=== PATIENT | female | born 1950 | race Caucasian/White ===

== ENCOUNTER 2021-09-22 12:07 | Inpatient (IN) | payer MEDICARE, OTHER ==
[~2021-09-22] VITALS: Ht 165.1 cm; Wt 63.0 kg
[2021-09-22] VITALS (7 sets, daily range): BP systolic 100–125; BP diastolic 52–86
[2021-09-22 15:24] LABS: HEMATOCRIT 38.5 % (37.0-47.0); HEMOGLOBIN 12.4 g/dl (12.0-16.0); IMMATURE GRANULOCYTES 0.2 % (0.0-5.0); MEAN CELL VOLUME 99.5 fL CALC (80.0-100.0); MEAN CORPUSCULAR HGB CONC 32.2 g/dL CAL (32.0-36.0); NEUT# 8.98 thou/uL (2.00-7.15); RED BLOOD COUNT 3.87 mill/uL (4.20-5.60); RED CELL DISTRI WIDTH 16.2 % (11.5-15.5)
[2021-09-22 15:42] LABS: ALBUMIN 3.7 g/dL (3.2-5.0); ALKALINE PHOSPHATASE 103 u/l (38-126); BILIRUBIN, TOTAL 0.5 mg/dL (0.0-1.4); BUN 37 mg/dL (8-23); BUN/CREATININE RATIO 55 (12-20 (CALC)); CARBON DIOXIDE 33 mmol/l (22-30); CHLORIDE 97 mmol/l (95-108); CREATININE 0.7 mg/dL (0.5-1.0); GFR > 60 ML/MIN (>=60 (CALC)); GFR FOR AFR.AMER. > 60 ML/MIN (>=60 (CALC)); SGOT/AST 31 u/l (9-36); SODIUM 135 mmol/l (137-146); TOTAL PROTEIN 6.8 g/dL (6.3-8.2)
[2021-09-22 15:46] LABS: ANION GAP 9 (6-22 (CALC)); POTASSIUM 3.7 mmol/l (3.5-5.1)
[2021-09-22] MEDS ORDERED: LASIX 40 MG TAB40 MG PO (17:14)
[2021-09-22] MEDS ORDERED: FENTANYL50 MCG/HR TOP (17:15)
[2021-09-22] MEDS ORDERED: KLOR-CON M1010 MEQ PO (17:16)
[2021-09-22] MEDS ORDERED: GABAPENTIN100 MG PO (17:17)
[2021-09-22] MEDS ORDERED: ACYCLOVIR400 MG PO (17:18)
[2021-09-22] MEDS ORDERED: SERTRALINE50 MG PO (17:19)
[2021-09-22] MEDS ORDERED: DEXAMETHASON0.5 MG PO (17:19)
[2021-09-22] MEDS ORDERED: TEMAZEPAM30 MG PO (17:20)
[2021-09-22] MEDS ORDERED: SENNA PLUS 50-81 CAP PO (17:21)
[2021-09-22] MEDS ORDERED: MORPHINE SUL30 M3 PO (17:23)
[2021-09-22] MEDS ORDERED: ELAVIL25 M1 PO (17:30)
[2021-09-22] MEDS ORDERED: MIRALAX17 GM PO (17:31)
[2021-09-23 04:43] VITALS: BP 97/43
[2021-09-23 05:00] VITALS: BP 102/68
[2021-09-23 05:34] LABS: HEMOGLOBIN 11.5 g/dl (12.0-16.0); MEAN CELL VOLUME 99.7 fL CALC (80.0-100.0); MEAN CORPUSCULAR HGB 31.9 pG CALC (26.0-32.0); MEAN CORPUSCULAR HGB CONC 31.9 g/dL CAL (32.0-36.0); RED BLOOD COUNT 3.61 mill/uL (4.20-5.60); RED CELL DISTRI WIDTH 16.4 % (11.5-15.5)
[2021-09-23 05:54] LABS: ANION GAP 8 (6-22 (CALC)); BUN 34 mg/dL (8-23); BUN/CREATININE RATIO 38 (12-20 (CALC)); CARBON DIOXIDE 30 mmol/l (22-30); CHLORIDE 102 mmol/l (95-108); CREATININE 0.9 mg/dL (0.5-1.0); GFR > 60 ML/MIN (>=60 (CALC)); GFR FOR AFR.AMER. > 60 ML/MIN (>=60 (CALC)); MAGNESIUM 2.2 mg/dL (1.6-2.3); POTASSIUM 3.6 mmol/l (3.5-5.1); SODIUM 136 mmol/l (137-146)
[2021-09-23 08:05] VITALS: BP 94/45
[2021-09-23] MEDS ORDERED: SANTYL250 UNIT/G TOP (12:27)
[2021-09-23] MEDS ORDERED: ATIVAN0.5 MG PO (12:30)
[2021-09-23] MEDS ORDERED: MELATONIN5 M3 PO (12:33)
[2021-09-23] MEDS ORDERED: MORPHINE SUL15 M2 PO (12:40)
[2021-09-23] MEDS ORDERED: MS CONTIN15 M1 PO (12:44)
[2021-09-23] MEDS ORDERED: BISACODYL5 MG PO (12:49)
[2021-09-23] MEDS ORDERED: GUAIFENESIN400 MG PO (13:13)
[2021-09-23] MEDS ORDERED: ACETAMINOPHEN500 MG PO (13:19)
[2021-09-23] MEDS ORDERED: TRAZODONE50 MG PO (13:42)
[2021-09-23 16:09] VITALS: BP 98/43
[2021-09-23 19:00] VITALS: BP 95/43
[2021-09-23 19:10] VITALS: BP 100/54
[2021-09-24 04:46] VITALS: BP 96/45
[2021-09-24 05:14] LABS: HEMATOCRIT 35.7 % (37.0-47.0); HEMOGLOBIN 11.4 g/dl (12.0-16.0); MEAN CELL VOLUME 100.3 fL CALC (80.0-100.0); MEAN CORPUSCULAR HGB CONC 31.9 g/dL CAL (32.0-36.0); RED BLOOD COUNT 3.56 mill/uL (4.20-5.60); RED CELL DISTRI WIDTH 16.1 % (11.5-15.5)
[2021-09-24 05:38] LABS: ANION GAP 9 (6-22 (CALC)); BUN 40 mg/dL (8-23); BUN/CREATININE RATIO 48 (12-20 (CALC)); CARBON DIOXIDE 31 mmol/l (22-30); CHLORIDE 100 mmol/l (95-108); CREATININE 0.8 mg/dL (0.5-1.0); GFR > 60 ML/MIN (>=60 (CALC)); GFR FOR AFR.AMER. > 60 ML/MIN (>=60 (CALC)); MAGNESIUM 2.2 mg/dL (1.6-2.3); POTASSIUM 3.7 mmol/l (3.5-5.1); SODIUM 136 mmol/l (137-146)
[2021-09-24 14:12] VITALS: BP 105/54
[2021-09-24 14:45] VITALS: BP 105/54
[2021-09-25 05:50] LABS: HEMATOCRIT 33.1 % (37.0-47.0); HEMOGLOBIN 10.8 g/dl (12.0-16.0); MEAN CELL VOLUME 101.2 fL CALC (80.0-100.0); MEAN CORPUSCULAR HGB CONC 32.6 g/dL CAL (32.0-36.0); RED BLOOD COUNT 3.27 mill/uL (4.20-5.60); RED CELL DISTRI WIDTH 16.4 % (11.5-15.5)
[2021-09-25 05:56] LABS: ANION GAP 7 (6-22 (CALC)); BUN 36 mg/dL (8-23); BUN/CREATININE RATIO 41 (12-20 (CALC)); CARBON DIOXIDE 33 mmol/l (22-30); CHLORIDE 100 mmol/l (95-108); CREATININE 0.9 mg/dL (0.5-1.0); GFR > 60 ML/MIN (>=60 (CALC)); GFR FOR AFR.AMER. > 60 ML/MIN (>=60 (CALC)); MAGNESIUM 2.3 mg/dL (1.6-2.3); POTASSIUM 3.9 mmol/l (3.5-5.1); SODIUM 136 mmol/l (137-146)
[2021-09-25 08:26] VITALS: BP 99/33
[2021-09-25 15:00] VITALS: BP 90/50
[2021-09-25 19:00] VITALS: BP 113/48
[2021-09-26 04:17] VITALS: BP 99/47
[2021-09-26 04:18] VITALS: BP 98/47
[2021-09-26 05:37] LABS: HEMATOCRIT 34.1 % (37.0-47.0); HEMOGLOBIN 10.8 g/dl (12.0-16.0); MEAN CELL VOLUME 102.1 fL CALC (80.0-100.0); MEAN CORPUSCULAR HGB 32.3 pG CALC (26.0-32.0); MEAN CORPUSCULAR HGB CONC 31.7 g/dL CAL (32.0-36.0); RED BLOOD COUNT 3.34 mill/uL (4.20-5.60); RED CELL DISTRI WIDTH 16.6 % (11.5-15.5)
[2021-09-26 05:54] LABS: ANION GAP 9 (6-22 (CALC)); BUN 39 mg/dL (8-23); BUN/CREATININE RATIO 53 (12-20 (CALC)); CARBON DIOXIDE 30 mmol/l (22-30); CHLORIDE 101 mmol/l (95-108); CREATININE 0.7 mg/dL (0.5-1.0); GFR > 60 ML/MIN (>=60 (CALC)); GFR FOR AFR.AMER. > 60 ML/MIN (>=60 (CALC)); MAGNESIUM 2.1 mg/dL (1.6-2.3); POTASSIUM 3.6 mmol/l (3.5-5.1); SODIUM 136 mmol/l (137-146)
[2021-09-26 08:40] VITALS: BP 90/59
[2021-09-26] MEDS ORDERED: AMOX/K CLAV875 M1 PO (14:55)
== END 2021-09-26 17:30 | disposition home or self-care (01) | DRG 571 ==
LOC: ED 12:07 → ED-I 16:06 → ED 16:15 → MS2 16:16
PROVIDERS: Nurse Practitioner; ADMIT Hospitalist; ATTEND Hospitalist
PROC: 0JBN0ZZ Excision of Right Lower Leg Subcutaneous Tissue and Fascia, Open Approach (ICD-10-PCS; principal; 2021-09-24)
DX: L03.115 Cellulitis of right lower limb (principal); L97.819 Non-pressure chronic ulcer of other part of right lower leg with unspecified severity; C95.90 Leukemia, unspecified not having achieved remission; I51.81 Takotsubo syndrome; Z94.81 Bone marrow transplant status; M34.9 Systemic sclerosis, unspecified; J44.9 Chronic obstructive pulmonary disease, unspecified; I50.9 Heart failure, unspecified; L89.899 Pressure ulcer of other site, unspecified stage; F41.9 Anxiety disorder, unspecified; F32.A Depression, unspecified; G62.9 Polyneuropathy, unspecified; B95.2 Enterococcus as the cause of diseases classified elsewhere; B96.89 Other specified bacterial agents as the cause of diseases classified elsewhere; Z20.822 Contact with and (suspected) exposure to COVID-19
CPT/HCPCS: J0692; J1650; J3490; Q3014